=== PATIENT | female | born 1955 | race Caucasian/White ===

== ENCOUNTER 2021-04-10 10:04 | Outpatient (REF) | payer BC, SELFPAY ==
[2021-04-11 11:47] LABS: Lyme Abs Screen <0.90 index
== END 2021-04-10 10:05 | disposition home or self-care (01) ==
LOC: HO.10HDL 10:04
PROVIDERS: PCP Internal Medicine; Visit Provider Internal Medicine
DX: T14.8XXA Other injury of unspecified body region, initial encounter (principal); W57.XXXA Bitten or stung by nonvenomous insect and other nonvenomous arthropods, initial encounter; Y93.9 Activity, unspecified; Y92.9 Unspecified place or not applicable; Y99.9 Unspecified external cause status
CPT/HCPCS: 36415; 86617; 86618

== ENCOUNTER 2021-05-16 14:06 | Outpatient (REF) | payer BC, SELFPAY | END 2021-05-16 14:07 | disposition home or self-care (01) | LOC: HO.LNP 14:06 | PROVIDERS: Visit Provider Internal Medicine | DX: N60.01 Solitary cyst of right breast (principal); L03.90 Cellulitis, unspecified | CPT/HCPCS: 87071; 87205 ==

== ENCOUNTER 2021-09-06 16:46 | Outpatient (REF) | payer BC, SELFPAY ==
[2021-09-06 17:04] LABS: COVID-19 Test Negative (Negative); IDNOW Serial# 55D5AD1C
== END 2021-09-06 16:47 | disposition home or self-care (01) ==
LOC: HO.LNP 16:46
PROVIDERS: Visit Provider Internal Medicine
DX: Z20.822 Contact with and (suspected) exposure to COVID-19 (principal)
CPT/HCPCS: 87635

== ENCOUNTER 2022-06-16 16:30 | Outpatient (REF) | payer BC, SELFPAY ==
--- NOTE | ~2022-06-16 | XR_ITS ---
EXAMINATION: XR RIBS, RIGHT CLINICAL INFORMATION: Pain in the right rib cage COMPARISON: None TECHNIQUE: 3 views of the right ribs were obtained. FINDINGS: Lungs are clear. No consolidation, pneumothorax, or pleural effusion. The cardiomediastinal silhouette and pulmonary vasculature are normal. Osseous structures are unremarkable. Ribs are intact. No fractures are identified. XR/XR ribs RT min 3V w CXR1V IMPRESSION: Unremarkable examination, without interval change.
== END 2022-06-16 16:31 | disposition home or self-care (01) ==
LOC: HO.XRAY 16:30
PROVIDERS: PCP Internal Medicine; Visit Provider Internal Medicine
DX: R07.81 Pleurodynia (principal); Z91.81 History of falling
CPT/HCPCS: 71101

== ENCOUNTER 2023-04-28 15:07 | Outpatient (REF) | payer BC, SELFPAY ==
--- NOTE | ~2023-04-28 | XR_ITS ---
EXAMINATION: XR BILATERAL KNEES CLINICAL INFORMATION: Reason for Exam OA COMPARISON: None TECHNIQUE: 4 views of the bilateral knees FINDINGS: RIGHT KNEE: No acute fracture or dislocation. Advanced degenerative changes of the knee with complete loss of medial compartment joint space and tricompartmental osteophytes with valgus angulation of the knee. Small ossification in the central tibiofemoral joint space measuring 5 mm may reflect a loose body. Small suprapatellar joint effusion. Atherosclerotic vascular calcification. LEFT KNEE: No acute fracture or dislocation. Advanced degenerative changes of the knee with complete loss of medial compartment joint space and tricompartmental osteophytes with valgus angulation of the knee. Moderate suprapatellar joint effusion. Soft tissues are unremarkable. XR/XR knee LT 4V IMPRESSION: * No acute osseous abnormality. * Advanced degenerative changes of the knees. Small right and moderate left suprapatellar joint effusions. * Valgus angulation of the knees. * 5 mm ossification in the central right tibiofemoral joint space may reflect a loose body.
--- NOTE | ~2023-04-28 | XR_ITS ---
EXAMINATION: XR BILATERAL KNEES CLINICAL INFORMATION: Reason for Exam OA COMPARISON: None TECHNIQUE: 4 views of the bilateral knees FINDINGS: RIGHT KNEE: No acute fracture or dislocation. Advanced degenerative changes of the knee with complete loss of medial compartment joint space and tricompartmental osteophytes with valgus angulation of the knee. Small ossification in the central tibiofemoral joint space measuring 5 mm may reflect a loose body. Small suprapatellar joint effusion. Atherosclerotic vascular calcification. LEFT KNEE: No acute fracture or dislocation. Advanced degenerative changes of the knee with complete loss of medial compartment joint space and tricompartmental osteophytes with valgus angulation of the knee. Moderate suprapatellar joint effusion. Soft tissues are unremarkable. XR/XR knee RT 4V IMPRESSION: * No acute osseous abnormality. * Advanced degenerative changes of the knees. Small right and moderate left suprapatellar joint effusions. * Valgus angulation of the knees. * 5 mm ossification in the central right tibiofemoral joint space may reflect a loose body.
--- NOTE | ~2023-04-28 | XR_ITS ---
EXAMINATION: XR THORACIC SPINE CLINICAL INFORMATION: Reason for Exam upper back pain COMPARISON: None TECHNIQUE: 3 views of the thoracic spine FINDINGS: Vertebral body heights are maintained. Dextroconvex curvature of the thoracic spine. In the partially imaged cervical spine is reversal of usual cervical spine lordosis with multiple level moderate degenerative disc disease. Moderate multilevel degenerative disc disease with loss of disc space height. Paravertebral soft tissues are unremarkable. XR/XR thoracic spine 3V IMPRESSION: 1. Dextroconvex curvature of the thoracic spine with moderate multilevel degenerative disc disease. 2. In the partially imaged cervical spine is reversal of usual cervical spine lordosis with multiple level moderate degenerative disc disease.
--- NOTE | ~2023-04-28 | XR_ITS ---
EXAMINATION: XR RIBS, RIGHT CLINICAL INFORMATION: Reason for Exam upper back pain COMPARISON: Chest radiograph 06/16/2022 TECHNIQUE: 3 views of the Right ribs. 1 view of the chest. FINDINGS: No displaced rib fracture. Clear lungs. No pneumothorax. No pleural effusion. Unchanged cardiomediastinal silhouette. XR/XR ribs RT min 3V w CXR1V IMPRESSION: No displaced rib fracture. Please note that rib radiographs have low sensitivity for detection of rib fractures and if continued clinical concern CT chest is advised.
== END 2023-04-28 15:08 | disposition home or self-care (01) ==
LOC: HO.XRAY 15:07
PROVIDERS: PCP Internal Medicine; Visit Provider Internal Medicine
DX: M54.9 Dorsalgia, unspecified (principal); M17.0 Bilateral primary osteoarthritis of knee
CPT/HCPCS: 71101; 72072; 73564

== ENCOUNTER 2023-05-05 09:46 | Outpatient (REF) | payer BC, SELFPAY ==
[2023-05-05 10:17] LABS: MANUAL DIFF FLAG NO
[2023-05-05 10:21] LABS: Basophils Absolute Auto 0.1 X10*3/uL (0.0-0.2); Basophils Percent Auto 1.4 % (0-2); Eosinophils Absolute Auto 0.2 X10*3/uL (0.0-0.4); Eosinophils Percent Auto 2.6 % (0-4); Hematocrit 42.6 % (37.0-47.0); Hemoglobin 14.6 g/dl (12.0-16.0); Imm Gran Abs Auto 0.01 X10*3/uL (0.00-0.03); Imm Gran Pct Auto 0.2 % (0.0-0.4); Lymphocytes Absolute Auto 1.9 X10*3/uL (1.2-4.9); Lymphocytes Percent Auto 32.8 % (20-40); Mean Corpuscular HGB Conc 34.3 g/dl (31.0-35.0); Mean Corpuscular Hemoglobin 29.7 pg (27.0-33.0); Mean Corpuscular Volume 86.6 fL (80.0-98.0); Monocytes Absolute Auto 0.4 X10*3/uL (0.1-1.2); Monocytes Percent Auto 6.3 % (2-11); Neutrophils Absolute Auto 3.3 x10*3/uL (2.0-8.3); Neutrophils Percent Auto 56.7 % (45-73); Platelet Count 189 X10*3/uL (160-400); Red Blood Count 4.92 X10*6/uL (4.20-5.50); White Blood Count 5.7 X10*3/uL (4.8-10.8)
[2023-05-05 11:00] LABS: Alanine Aminotransferase 27 U/L (0-31); Albumin Level 4.1 g/dL (3.5-5.0); Alkaline Phosphatase 71 U/L (39-117); Anion Gap 10 (12-20); Aspartate Amino Transferase 25 U/L (5-31); Bilirubin Total 0.9 mg/dL (0.0-1.0); Blood Urea Nitrogen 12 mg/dL (9-16); Calcium 9.5 mg/dL (8.4-10.2); Carbon Dioxide 28 mmol/L (22-29); Chloride 109 mmol/L (96-108); Cholesterol 220 mg/dL (<200); Estimated Glomerular Filt Rate > 60; Glucose Fasting 70 mg/dL (60-99); HDL Cholesterol 40 mg/dL (>40); LDL Cholesterol Calculated 135 mg/dL (<100); Potassium 3.9 mmol/L (3.3-5.1); Sodium 143 mmol/L (135-145); Total Protein 7.2 g/dL (6.5-8.0); Triglycerides 227 mg/dL (<150)
[2023-05-05 11:18] LABS: Vitamin B12 357 pg/mL (200-900)
== END 2023-05-05 09:47 | disposition home or self-care (01) ==
LOC: HO.10HDL 09:46
PROVIDERS: Visit Provider Internal Medicine
DX: E78.00 Pure hypercholesterolemia, unspecified (principal); I10 Essential (primary) hypertension; R20.0 Anesthesia of skin
CPT/HCPCS: 36415; 80053; 80061; 82607; 84439; 84443; 85025

== ENCOUNTER 2023-05-25 08:23 | Outpatient (REF) | payer BC, SELFPAY ==
--- NOTE | ~2023-05-25 | XR_ITS ---
EXAMINATION: XR KNEE AP STANDING CLINICAL INFORMATION: Pain COMPARISON: 04/28/2023 radiographs TECHNIQUE: AP bilateral standing view of the knees was obtained. FINDINGS: No definite acute fracture or dislocation appreciated however only a limited single view was obtained. Soft tissues are unremarkable. Advanced degenerative changes of the right knee with complete loss of medial compartment joint space, medial and lateral compartment osteophytes and valgus angulation of the knee. Advanced degenerative changes of the left knee with near complete loss loss of medial compartment joint space, medial and lateral osteophytes and valgus angulation of the knee. XR/XR knee standing BI IMPRESSION: Advanced degenerative changes of the bilateral knees with valgus angulation.
== END 2023-05-25 08:24 | disposition home or self-care (01) ==
LOC: HO.HOSX 08:23
PROVIDERS: Visit Provider Orthopaedic Surgery
DX: M17.0 Bilateral primary osteoarthritis of knee (principal); M21.169 Varus deformity, not elsewhere classified, unspecified knee
CPT/HCPCS: 73565

== ENCOUNTER 2023-05-25 09:53 | Outpatient (AMB) | payer BC, SELFPAY ==
--- NOTE | 2023-05-25 09:55 | MHC.OFFVIS ---
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 Patient reports that she has had ongoing knee pain for a few years now. No Previous treatment of the knees. 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 She has found that her knees are getting progressively worse. Allergies aspirin [ASPIRIN] Allergy (Unknown, Unverified 05/25/23 10:06) HALLUCINATIONS HPI [employer] OFFICER- B/L knee pain HPI Details Dyana is a 67 year old woman who presents with complaints of bilateral knee pain. She complains of pain with daily activity, worse with prolonged walking or standing. She denies any pain using stairs. 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 She denies any prior treatment for her knees and says they are worsening with time. She says prolonged standing with her knees locked in extension is painful for her when she bends her knees. If she stands with her knees slightly bent she denies any pain. She says she has been modifying her activities and planning around her inability to walk long distances. She says she used to be very athletic and active, but this has slowed in the last year due to her pain. She says some patches helped her pain but she is unsure of the type. She denies any NSAID use, and reports she had hallucinations from Aspirin as a child. She has only been taking Tylenol for pain relief. [facility] Social History (Updated 05/25/23 @ 10:06 by Светлана Garcia CMA) Patient Tobacco Use Status: Never used Tobacco Current occupational status: employed Current occupation: [employer] Review of Systems Const All systems reviewed & are unremarkable except as noted in HPI and below Physical Exam Vital Signs: BMI result Body Mass Index 29.7 Const General: no acute distress, alert and awake Orientation/consciousness: patient oriented x3 HEENT Head: Yes normocephalic and Yes atraumatic Eyes EOM: EOMs intact bilaterally Resp Effort & Inspection: normal respiratory effort and able to speak in complete sentences Cardio Jugular venous distension: no JVD Skin General skin exam: turgor normal Rashes: no rashes Neuro General: patient oriented x3 Extrem Other: Bilateral Knees: Mild TTP medial compartment Varus alignment normal gait Psych Appearance: grossly normal Affect: normal affect Attitude: cooperative Results Reviewed Results Reviewed: I personally reviewed relevant radiographs. Severe bilateral knee OA with varus alignment Assessment & Plan Assessment & Plan (1) Bilateral primary osteoarthritis of knee: Code(s): M17.0 - Bilateral primary osteoarthritis of knee Plan: This is a 67 year old woman with severe bilateral knee OA with varus alignment. She complains of pain primarily with prolonged standing or ambulation. She used to live an active lifestyle and wants to be active again, but finds this difficult due to her pain and she feels limited in her ADLs. She had a negative reaction to Aspirin as a child and is hesitant to take NSAIDs without more testing. I discussed her diagnosis and treatment options. I recommend icing, bracing, and she remain active as tolerated. She will ocntact me if there is anything I can do for her but at this time she wanted to just discuss. (2) Varus deformity of knee: Code(s): M21.169 - Varus deformity, not elsewhere classified, unspecified knee Plan Scribed for Go Fernando MD by Ariel Goodrich, medical officer psychiatry, on 05/25/23 at 10:15 AM, EST. Orders: Orders XR knee standing BI 05/25/23 M25.569 - Pain in unspecified knee XR knee RT 2V 05/25/23 M25.569 - Pain in unspecified knee XR knee LT 2V 05/25/23 M25.569 - Pain in unspecified knee Coding Level of Care Code New Pt Level 3 (39646) Diagnoses Bilateral primary osteoarthritis of knee M17.0 Varus deformity of knee M21.169
[2023-05-25 10:02] VITALS: BMI 29.7
== END 2023-05-25 10:39 | disposition home or self-care (01) ==
PROVIDERS: PCP Internal Medicine; Visit Provider Orthopaedic Surgery
DX: M17.0 Bilateral primary osteoarthritis of knee (principal); M21.169 Varus deformity, not elsewhere classified, unspecified knee
CPT/HCPCS: 99203

== ENCOUNTER 2023-08-13 09:24 | Outpatient (REF) | payer BC, SELFPAY ==
[2023-08-13 10:18] LABS: Influenza A PCR POSITIVE (Negative); Influenza B PCR NEGATIVE (Negative); Resp Syncy Virus RNA Qual PCR NEGATIVE (Negative); SARS COV2 PCR INHOUSE NEGATIVE (Negative)
== END 2023-08-13 09:25 | disposition home or self-care (01) ==
LOC: HO.LNP 09:24
PROVIDERS: Visit Provider Internal Medicine
DX: Z11.52 Encounter for screening for COVID-19 (principal); Z20.822 Contact with and (suspected) exposure to COVID-19; R05.9 Cough, unspecified; R06.02 Shortness of breath
CPT/HCPCS: 0241U

== ENCOUNTER 2025-04-26 09:36 | Outpatient (AMB) | payer BC, SELFPAY ==
--- NOTE | 2025-04-26 09:42 | A.OFFPC_ITS ---
Vital Signs 04/26/25 09:48 04/26/25 10:13 Height 5 ft 3 in Weight 77.564 kg BMI 30.3 BP 124/80 Respiration 16 Pulse 79 Pulse Source Pulse Oximeter Temp 98.1 F Temp Source Temporal Artery Scan Pulse Oximetry (%) 98 Oxygen Delivery Method Room Air Intake Visit Reasons: Annual / Dr Petit Webfocus Developer Required: No Accompanied by: Self / Same As Patient Allergies aspirin (ASPIRIN) Allergy (Unknown, Unverified 04/26/25 09:42) HALLUCINATIONS Tobacco use date assessed: 04/26/25 Fall risk assessment: No Falls in past year Last assessed Fall Risk: 04/26/25 Dental Screening Dental Screen Date: 04/26/25 Did you have a dental visit in the last 12 months?: Yes Did you have a dental problem in the last 6 months where you did not have access to dental care?: No Was dental information given to patient?: No HPI HPI Comments History of Present Illness Details 69-year-old female [facility] to [facility] care and for annual physical exam. She currently lives at home with her . She is limited as far as exercise goes due to osteoarthritis in the bilateral knees, though does not perform other exercises. She is also not following a very healthy diet, though does report she knows what to eat as far as health is concerned given her has history of CABG x4. She is no longer working, previously worked at [employer]. She had been taking care of her parents. Occasional alcohol use, no cigarette smoking, no drug use. Hyperlipidemia-not on statin. Last LDL 127 Obesity-as above Concerns: Bilateral knee pain- ongoing x2 years. No specific injury. Previously seen by ortho who recommended conservative measures. She will not take NSAIDS due to a remote reaction (possible) to asa. Has taken tylenol 1000mg minimal relief. Has also gained 20 pounds. Now with increasing pain and stiffness limiting activities. Health maintenance: Overdue for mammogram and colonoscopy Has never undergone DEXA scan Dentist twice yearly Follows with eye doctor Reviewed past medical, surgical, social, family history ROS: General: No fevers, malaise, unintentional weight loss HEENT: No blurred vision, diplopia. No sore throat, nasal congestion, rhinorrhea, sinus pain, ear pain. No hearing loss Neck - no adenopathy Cardiovascular: No chest pain, palpitations, or leg edema Respiratory: No shortness of breath, wheezing, cough Breast: No pain, palpable lumps, nipple inversion GI: No dysphagia, odynophagia, globus sensation. No abdominal pain, nausea, vomiting, diarrhea, constipation, melena, hematochezia : No dysuria, hematuria, increased urinary frequency, decreased urinary output. PROGRAM PROFESSIONAL: No abn vaginal bleeding or discharge MSK: No myalgia, back pain. see hpi Neuro: No headaches, weakness, paresthesias Psych: no depression/anxiery. No AH/VH. No SI/HI Skin: No rashes or lesions EXAM: Constitutional - Awake and Alert, No apparent distress Eyes - PERRLA, EOMI. Anicteric Ears - external ears normal, canals clear, TMs intact and pearly wahl with good cone of light Nose- septum midline, nares clear, no sinus tenderness Mouth/throat- mucosa moist, tongue and uvula midline, no erythema/edema or tonsillar adenopathy. Neck-trachea midline, thyroid symmetric without palpable nodules, no adenopathy Cardiovascular - S1S2, RRR, No edema Respiratory - Normal lung expansion, Normal respiratory effort, No respiratory distress, CTA bilaterally Gastrointestinal - NT / ND; +BS; No rebound or guarding - No CVA tenderness Extremities - no calf tenderness bilaterally, no swelling Musculoskeletal - Normal inspection, normal ROM Skin - Warm/Dry, no concerning lesions Neurological - Alert & oriented x3, CN II-XII in tact, 5/5 strength BUE and BLE, 2+ patellar reflexes, sensation intact Psychological - Appropriate affect PFSH Medical History (Updated 04/26/25 @ 10:14 by JENNIFER Hudson) Hyperlipemia Surgical History (Updated 04/26/25 @ 11:05 by JENNIFER Hudson) No pertinent past surgical history Family History (Updated 04/26/25 @ 11:05 by JENNIFER Hudson) Family/Other Dementia Social History Housing: House Patient Tobacco Use Status: Never used Tobacco e-Cigarette/Vaping Use: Never Used service: No Current occupational status: retired Vision needs: Yes (Reading glasses) Questionnaire PHQ-9 Over the last 2 weeks, how often have you been bothered by any of the following problems? 1. Little interest or pleasure in doing things: not at all 2. Feeling down, depressed, or hopeless: not at all 3. Trouble falling or staying asleep, or sleeping too much: not at all 4. Feeling tired or having little energy: not at all 5. Poor appetite or overeating: not at all 6. Feeling bad about yourself - or that you are a failure or have let yourself or your family down: not at all 7. Trouble concentrating on things, such as reading the newspaper or watching television: not at all 8. Moving or speaking so slowly that other people could have noticed. Or the opposite - being so fidgety or restless that you have been moving around a lot more than usual: not at all 9. Thoughts that you would be better off or of hurting yourself in some way: not at all Total score: 0 Source: Developed by Drs. Jordin Cunningham, Gemma Weinstein, Franco Gray and colleagues, with an educational foster from [employer]. Thrive Questionnaire Date Thrive assessed: 04/26/25 I am a: Patient What is your living situation today?: I have a steady place to live Within the past 12 months, did the food you bought not last and you didn't have the money to get more?: Never true Within the past 12 months, did you worry whether your food would run out before you got money to buy more?: Never true Do you have trouble paying for medicines?: No Do you have trouble getting transportation to medical appointments?: No Do you have trouble paying your heating and electricity bill?: No Do you have trouble taking care of your child, family member or friend?: No Do you have trouble with day-to-day activities such as bathing, preparing meals, shopping, managing finances, etc.?: No Are you currently unemployed and looking for a job?: No Are you interested in more education?: No Please select the resources that you would like help with: None THRIVE Score: 0 JOAQUIM-7 AMB Questionnaire JOAQUIM-7 Date JOAQUIM - 7 assessed: 04/26/25 Feeling nervous, anxious, or on edge: 0 = Not at all Not being able to stop or control worryin = Not at all Worrying too much about different things: 0 = Not at all Trouble relaxin = Not at all Being so restless that it is hard to sit still: 0 = Not at all Becoming easily annoyed or irritable: 1 = Several days Feeling afraid as if something awful might happen: 0 = Not at all Total JOAQUIM-7 score (0-4 normal; 5-9 mild; 10-14 moderate; 15-21 severe): 1 Source: Developed by Drs. Jordin Cunningham, Gemma Weinstein, Franco Gray and colleagues, with an educational foster from [employer]. Physical exam (Primary Care) Vital Signs: Last Vital Signs Temp 98.1 F 04/26/25 09:48 Pulse 79 04/26/25 09:48 Resp 16 04/26/25 09:48 BP 124/80 04/26/25 10:13 Pulse Ox 98 04/26/25 09:48 Oxygen Delivery Method Room Air 04/26/25 09:48 BMI result Body Mass Index 30.3 Tobacco/Smoking Status: Tobacco use Status Tobacco use date assessed 04/26/25 04/26/25 09:51 Patient Tobacco Use Status Never used Tobacco 04/26/25 09:51 e-Cigarette/Vaping Use Never Used 04/26/25 09:51 PHQ-9: PHQ-9 Score PHQ-9: Total score 0 04/26/25 09:51 Thrive Assessment: Date of Thrive Assessment Date Thrive assessed 04/26/25 04/26/25 09:51 Coding Level of Care Code New Pt Prev Care >65yr (97411) Diagnoses Routine medical exam Z00.00 Bilateral primary osteoarthritis of knee M17.0 Obesity E66.9 Hyperlipemia E78.5 Assessment & Plan Assessment & Plan (1) Routine medical exam: Code(s): Z00.00 - Encounter for general adult medical examination without abnormal find ings Plan: 69-year-old female presenting for annual physical exam (2) Bilateral primary osteoarthritis of knee: Code(s): M17.0 - Bilateral primary osteoarthritis of knee Category: Medical Plan: Reviewed last orthopedic note. Sent for XR of the bilateral knees and referred back to Orthopedic surgery. Recommend diclofenac gel as well as ice and rest. Can also use Tylenol p.r.n. (3) Obesity: Code(s): E66.9 - Obesity, unspecified Category: Medical Plan: Weight loss efforts advised. Discussed nonweightbearing exercises that she should be able to perform despite her knee pain. Also discussed healthy diet (4) Hyperlipemia: Code(s): E78.5 - Hyperlipidemia, unspecified Category: Medical Plan: Lipid panel ordered. ASCVD risk score to be calculated pending results of study Plan Routine screening labs as ordered below Continue with screening mammograms, Pap smears, colonoscopies Continue following for annual skin exams and use sun protection Annual eye exams Wear seat belt in car Recommend regular exercise and healthy diet Follow up for annual exam Orders: Orders Basic Metabolic Panel Today E66.9 - Obesity, unspecified, M17.0 - Bilateral primary osteoarthritis of knee, Z00.00 - Encounter for general adult medical examination without abnormal findings Liver Panel Today E66.9 - Obesity, unspecified, M17.0 - Bilateral primary osteoarthritis of knee, Z00.00 - Encounter for general adult medical examination without abnormal findings Complete Blood Count Auto Diff Today E66.9 - Obesity, unspecified, M17.0 - Bilateral primary osteoarthritis of knee, Z00.00 - Encounter for general adult medical examination without abnormal findings Vitamin D 25-OH Total Today E66.9 - Obesity, unspecified, M17.0 - Bilateral primary osteoarthritis of knee, Z00.00 - Encounter for general adult medical examination without abnormal findings MM tomosynthesis screening BI Today Z12.31 - Encounter for screening mammogram for malignant neoplasm of breast XR DEXA axial skeleton Today M89.8X9 - Other specified disorders of bone, unspecified site, Z78.0 - Asymptomatic menopausal state Hemoglobin A1c Today E66.9 - Obesity, unspecified, M17.0 - Bilateral primary osteoarthritis of knee, Z00.00 - Encounter for general adult medical examination without abnormal findings Lipid Panel Today E66.9 - Obesity, unspecified, M17.0 - Bilateral primary osteoarthritis of knee, Z00.00 - Encounter for general adult medical examination without abnormal findings XR Knee Tacho 3V Today M17.0 - Bilateral primary osteoarthritis of knee Referrals Orthopedics Referral M17.0 - Bilateral primary osteoarthritis of knee, Z00.00 - Encounter for general adult medical examination without abnormal findings Gastroenterology Referral Z12.11 - Encounter for screening for malignant neoplasm of colon
[2025-04-26 09:48] VITALS: PULSE 79; RESP 16; TEMP 36.7; O2SAT 98; BMI 30.3
[2025-04-26 10:13] VITALS: BP 124/80
--- OUTSIDE RECORDS SUMMARY | 2025-04-26 10:29 | XMS_ITS | Patient Health Record ---
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 Name Role Phone Marisabel (RETIRED) Stephon GRANT Primary Care Provide r Jordin Ahmadi Unavailable [phone] Allergies Allergen (clinical drug ingredient) Drug/Non Drug Allergy documented on EMR Reaction Allergy Type Onset Date Status aspirin Aspirin Unknown Drug Allergy Active Reason For Referral No Information Medications Medication SIG (Take, Route, Fr equency, Duration) Notes Start Date End Date Status MoviPrep 100 GM as directed Orally a s directed for 1 dose 01/04/2013 Active Problems Problem Type SNOMED Code ICD Code Onset Dates Problem Status W/U Status Risk Notes Problem Colon cancer screening (V76.51) Active confirmed Plan Of Treatment Future Test Test Name Order Date COLONOSCOPY 01/04/2013 Insurance Providers Payer Name Payer Address Payer Phone Subscriber Number Group Number Insured Name Patient Relationship to Insured Coverage Start Date Coverage End Date [address] [place] [id number] LEXIE BENTLEY Self - patient is the insured Medical (General) History Medical History History ICD Code Previous HTN-on no meds now since having lost weight Denies OR,DM,CVA,Lung disease,renal dise ase She describes a negative fle xible sigmoidoscopy about 18 years ago for evaluation of some bleeding, and was told of fissures . Surgical History Surgery Date(Month/Year) wisdom teeth extraction
== END 2025-04-26 10:17 | disposition home or self-care (01) ==
LOC: HO.HMCHD 09:36
PROVIDERS: PCP Internal Medicine; Visit Provider Physician Assistant
DX: Z00.00 Encounter for general adult medical examination without abnormal findings (principal); M17.0 Bilateral primary osteoarthritis of knee; E66.9 Obesity, unspecified; E78.5 Hyperlipidemia, unspecified